=== PATIENT | male | born 1985 | race Caucasian/White ===

== ENCOUNTER → 2022-05-09 | Outpatient (CLI) | payer MEDICAID, SELFPAY ==
[2022-05-09 15:26] LABS: Absolute Lymphocyte Count 2.79 X10^3/uL (0.83-4.51); Absolute Neutrophil Count 4.6 X10^3/uL (2.0-7.7); Basophil# 0.05 X10^3/uL; Basophil% 0.6 % (0-1); Eosinophils% 1.2 % (0-5); Lymphocyte # 2.79 X10^3/ul (0.83-4.51); Lymphocyte % 34.6 % (19-41); Mean Corp Hgb Conc 35.9 g/dL (32-36); Mean Corpuscular Hgb 33.4 pg (27.0-32.0); Mean Corpuscular Volume 93.1 fL (80-94); Mean Platelet Vol. 9.3 fl (6.2-12.0); Monocyte# 0.49 X10^3/uL; Monocyte% 6.1 % (0-10); NRBC Flagged by Analyzer 0 % (0-5); Platelet Count 248 K/mm3 (150-450); RBC Distribution Width SD 37.2 fl (35.1-43.9); Red Blood Count 4.19 M/mm3 (4.6-6.2); White Blood Count 8.1 K/mm3 (4.4-11.0)
[2022-05-09 15:35] LABS: Anion Gap 5 (5-15); BUN 15 mg/dL (7-18); BUN/Creat Ratio 15.9 RATIO (10-20); Calcium,Total 9.1 mg/dL (8.5-10.1); Chloride 102 mmol/L (98-107); Creatinine, Serum 0.94 mg/dL (0.70-1.30); EST Glomerular Filtration Rate 97 mL/min (>60); Est Glom Filt Rate - Afr Amer 118 mL/min (>60); Glucose 103 mg/dL (74-106); Potassium 4.1 mmol/L (3.5-5.1); Sodium Level 136 mmol/L (136-145)
== END | disposition home or self-care (01) ==
LOC: BIMLAB 14:05
PROVIDERS: PCP Family Medicine; Visit Provider Family Medicine
DX: F71 Moderate intellectual disabilities (principal); F32.9 Major depressive disorder, single episode, unspecified
CPT/HCPCS: 36415; 80048; 85025

== ENCOUNTER → 2025-03-25 | Outpatient (CLI) | payer MEDICAID, SELFPAY ==
[2025-03-25 15:24] LABS: Hematocrit 39.0 % (40-54); Hemoglobin 13.0 g/dL (13.0-16.5); Immature Granulocytes Count 0.030 X10^3/uL (0.0-0.0); Mean Corp Hgb Conc 33.3 g/dL (32-36); Mean Corpuscular Volume 97.0 fL (80-94); Mean Platelet Vol. 9.8 fl (6.2-12.0); NRBC Flagged by Analyzer 0 % (0-5); Platelet Count 268 K/mm3 (150-450); RBC Distribution Width CV 11.4 % (11.6-14.6); RBC Distribution Width SD 40.1 fl (35.1-43.9); Red Blood Count 4.02 M/mm3 (4.6-6.2); White Blood Count 5.7 K/mm3 (4.4-11.0)
[2025-03-25 15:59] LABS: AST(SGOT) 19 U/L (<=37); Alanine Aminotransfer ALT/SGPT 14 U/L (<=46); Albumin, Serum 4.6 g/dL (3.5-5.0); Alkaline Phosphatase 48 U/L (40-129); Anion Gap 11 (5-15); BUN 13 mg/dL (4-19); BUN/Creat Ratio 15.6 RATIO (10-20); Calcium,Total 9.6 mg/dL (7.6-11.0); Carbon Dioxide 25.3 mmol/L (21.0-32.0); Chloride 102 mmol/L (98-108); Globulin 2.5 g/dL (2.2-4.2); Glucose 94 mg/dL (70-99); Potassium 4.9 mmol/L (3.3-5.1)
--- OUTSIDE RECORDS SUMMARY | 2025-03-25 19:21 | XMS RPT_ITS | CCD ---
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 Gopal Gustafson Primary Care Provider [phone] Dr. Gopal Gustafson Attending Provider Dr. Gopal Gustafson Referring Provider [phone] Gopal Gustafson Attending Unavailable Gopal Gustafson Referring Unavailable Gopal Gustafson Primary Care Unavailable Gopal Gustafson Referring Unavailable Gopal Gustafson Primary Care Unavailable Gopal Gustafson Attending Unavailable Dr. Gopal Gustafson DO Primary Care Physician Dr. Gopal Gustafson DO Attending Physician [phone] Dr. Gopal Gustafson DO Referring Provider Medications Current Medications Medication Drug Class(es) Dates Sig (Normalized) Sig (Original) citalopram 20 mg oral tablet (20 sources) Serotonin Reuptake Inhibitor Start: 02-20-2018 End: 03-25-2025 take 1 tablet by mouth once daily fluticasone propionate 0.05 mg/actuat metered dose nasal spray (8 sources) Corticosteroid Start: 02-13-2018 End: 12-25-2023 Start: 02-13-2018 End: 06-22-2020 Fluticasone Propionate Activ e 2 SPRAY INTRANASAL daily 15.8 June 22, 2020 8:34am Multivitamin tablet (1 source) Start: 04-12-2023 Completed/Discontinued Medications Medication Drug Class(es) Dates Sig (Normalized) Sig (Original) 24 hr buPROPion hydrochloride 150 mg extended release oral tablet (2 sources) Aminoketone Start: 02-13-2018 End: 02-20-2018 take 1 tablet by mouth once daily in the morning Bupropion Hcl 150 mg tablet extended release 24 hr Discontinued 150 mg PO EVERY MORNING February 13, 2018 12:00am February 20, 2018 2:35pm ketoconazole 10 mg/ml medicated shampoo (4 sources) Azole Antifungal Start: 11-21-2018 End: 05-09-2022 Ketoconazole (Nizoral A-D) 1 % shampoo Discontinued 1 NMA TOPICAL TWICE A WEEK 200 2 June 22, 2020 9:34am May 09, 2022 1:40pm Problems Active Problems Problem Classification Problem Date Documented Da te Episodic/Chronic Developmental disorders (5 sources) Moderate intellectual disability; Translations: [Moderate intellectual disabilities] Onset: 04-27-2023 Chronic Mood disorders (5 sources) Depressive disorder; Translations: [Depressive disorder] Onset: 04-27-2023 Chronic Other inflammatory condition of skin (2 sources) Pityriasis simplex; Translations: [Seborrhea capitis] 08-20-2019 Episodic Other nutritional; endocrine; and metabolic disorders (2 sources) Weight decreased; Translations: [Abnormal weight loss] 03-25-2025 Episodic Other skin disorders (2 sources) Acne varioliformis; Translations: [Acne varioliformis] 02-13-2018 Episodic Other upper respiratory disease (2 sources) Seasonal allergy; Translations: [Other seasonal allergic rhinitis] 02-13-2018 Chronic Past or Other Problems Problem Classification Problem Date Documented Da te Episodic/Chronic Immunizations and screening for infectious disease (1 source) Encounter for immunization; Translations: [Encounter for immunization] Onset: 04-27-2023 Episodic Results Test Name Value Interpretation Reference Range [facility] Internal Medicine Office Vis [facility] 12-25-2023 Internal Medicine Office Visit [facility] [address] [place] [address] OFFICE VISIT Date of Service: 12/25/23 MR#: [id number] Acct: [id number] Name: JOSEFINA LAW Vane Rep #: [id number] : 1985 Provider: Dr. Gopal almonte, DO Age/Sex: 38/M Location: [facility] [place] Status: Signed Intake Vital Signs 04/12/23 13:03 12/25/23 10:00 Height 6 ft 1 in 6 ft 1 in Weight: 212 lb 202 lb 4 oz BMI 27.9 26.6 BP 104/78 120/60 Blood Pressure Location Rt brachial Lt brachial Position Sitting Sitting Respiration 18 16 Pulse 71 70 Pulse Source Monitor Monitor Temp 98.5 F 97.6 F L Temp Source Temporal Temporal Pulse Oximetry (%) 96 98 Oxygen Delivery Method room air room air Intake Visit Reasons: ALLERGIES Chief Complaint: allergies Credit Reporter Required: No Accompanied by: Self Is patient in pain?: No Allergies No Known Allergies Allergy (Unverified 12/25/23 09:58) Medications ???Medication ???Instructions ???Recorded ???Confirmed ???Type multivitamin 1 tab PO DAILY 04/12/23 12/25/23 History citalopram 20 mg tablet (Celexa) 20 mg PO QDAY #90 tabs 12/25/23 12/25/23 Rx fluticasone propionate 50 2 spray intranasal QDAY #15.8 grams 12/25/23 12/25/23 Rx mcg/actuation nasal spray,suspension PFSH Medical History Seasonal allergies Acne varioliformis Depressive disorder Surgical History History of gastrointestinal surgery Family History Mother Hypertension Grandfather Hypertension Grandmother Hypertension Social History Smoking Status: Former smoker alcohol intake: current alcohol intake frequency: holidays/special occasions only substance use type: does not use what type of physical activity do you participate in: none HPI HPI Chief Complaint: allergies Details: JOSEFINA LAW, is a 38 M who presents to the office today for a refill on his medicine for depression and his nasal spray for his allergies. The biggest change in this young man's life is that his mother has been diagnosed with pancreatic cancer and only has several months to live. 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 I think he is at very high risk even if he could afford to live alone which he cannot. ROS Const Constitutional: No body ache, chills, excessive sweating, fatigue, fever(s), frequent falls, headache(s), snoring, weakness or change in appetite Eyes Eyes: No blurry vision, change in vision, eye pain or Light sensitivity ENT ENT: No abnormal hearing, ear or mastoid pain, tinnitus, nasal congestion, headache(s), neck pain or sore throat Resp Respiratory: No cough, shortness of breath, snoring or wheezing Cardio Cardiology: No chest pain at rest, chest pain with exertion, excessive sweating, dyspnea on exertion, lightheadedness, orthopnea or palpitations Gastro GI: No abdominal pain, change in bowel habits, constipation, cramping, diarrhea, nausea/dyspepsia or vomiting Genitourinary Male: No burning urination, painful urination, urinary incontinence or urinary frequency Musc Musculoskeletal: No abnormal gait, joint pain, back pain, limited range of motion, muscle weakness, neck pain or numbness Skin Skin: No dry skin, redness, lesions, itchy eyes, rash or wounds Neuro Neurology: No abnormal gait, abnormal hearing, weakness, frequent falls, headache(s), memory loss or numbness Psych Psychiatric: No anxiety, No change in appetite, No depression, No memory loss and No Thoughts of harming yourself/Others Endo Endocrine: No cold intolerance, excessive sweating, fatigue, flushing, heat intolerance, increased thirst/drinking or increased hunger Aller/Imm Allergy/Immunologic: No itchy eyes, seasonal allergy symptoms, hives or wheezing Kapil/Lymp Hematologic/Lymphatic: No easy bleeding or easy bruising Exam Const General: cooperative and healthy appearing Neck Neck: normal visual inspection Resp Effort Inspection: normal respiratory effort Auscultation: Bilateral: Clear to Auscultation Cardio Rate: regular rate Rhythm: regular rhythm Skin General: no rashes or lesions noted Neuro Cranial Nerves: CN's II-XI intact bilaterally Speech: speech normal Gait: normal gait Coordination: [id number] test normal Extrem General: normal to inspection Psych Appearance: grossly normal Affect: flat Speech and Movement: speech and movement normal Attitude: cooperative Thought Process: normal Thought Content: normal Judgment: fair Coding Level of Care Code Off vis,est,level 3 Diagnoses Moderate intellectual d (more content not included)... Normal [facility] Internal Medicine Office Vis [facility] 04-12-2023 Internal Medicine Office Visit [facility] [address] [place], [place] [address] OFFICE VISIT Date of Service: 04/12/23 MR#: [id number] Acct: [id number] Name: JOSEFINA LAW Rep #: [id number] : 1985 Provider: Dr. Gopal almonte DO Age/Sex: 37/M Location: [facility] [place] Status: Signed with Addenda ADDENDUM by Gill Rojo on 04/12/23 at 1419 Office Procedure Documentation entered by Gill Rojo 04/12/23 14:19: Immunizations Flucelvax Quad (PF) 60 mcg (15 mcg x 4)/0.5 mL IM syringe Performing Provider: Gopal Gustafson DO Performing Location: [facility] Administered by: Gill Rojo on 04/12/23 14:18 Dose Route Admin Location Dispensed Lot Number Expiration Date [facility] Man ufacturer 0.5 mL IM Left Deltoid 0.5 mL [id number] 12/15/23 06297-146-64 [employer] VIS Given Date VIS Provided VIS Publication Date 04/12/23 Single Vaccine 21 Eligibility Eligibility Date Funding Source Not Applicable Date cc: * Signed Intake Vital Signs 05/09/22 13:49 04/12/23 13:03 Height 6 ft 1 in 6 ft 1 in Weight: 218 lb 212 lb BMI 28.8 27.9 BP 120/78 104/78 Blood Pressure Location Lt brachial Rt brachial Position Sitting Sitting Respiration 15 18 Pulse 77 71 Pulse Source Monitor Monitor Temp 98.2 F 98.5 F Temp Source Temporal Temporal Pulse Oximetry (%) 98 96 Oxygen Delivery Method room air room air Intake Visit Reasons: 1 Y FU Chief Complaint: follow up Is patient in pain?: No Allergies No Known Allergies Allergy (Unverified 04/12/23 13:02) Medications fluticasone propionate 50 mcg/actuation nasal spray,suspension 2 spray intranasal QDAY #15.8 grams 05/29/22 [Rx Confirmed 04/12/23] citalopram 20 mg tablet (Celexa) 20 mg PO QDAY #90 tabs 04/12/23 [Rx Confirmed 04/12/23] multivitamin 1 tab PO DAILY 04/12/23 [History Confirmed 04/12/23] Nurse's Note: room 6 [facility] Medical History Acne varioliformis Depressive disorder Seasonal allergies Surgical History History of gastrointestinal surgery Family History Mother Hypertension Grandfather Hypertension Grandmother Hypertension Social History Smoking Status: Former smoker alcohol intake: current alcohol intake frequency: holidays/special occasions only substance use type: does not use what type of physical activity do you participate in: none HPI HPI Chief Complaint: follow up Details: JOSEFINA LAW, is a 37 M who presents to the office today for yearly exam. Chinedu is on Social Security disability because of developmental disorder. To my knowledge she has had no formal intelligence testing. He appears to be able to take care of his own basic needs but mainly takes care of a dog and really does not do anything else. He is aware of time person and place he can add and subtract he keeps up on world events, however the expectation of his mother is that he is unable to work and he has fulfilled that expectation. ROS Const Constitutional: No body ache, chills, excessive sweating, fatigue, fever(s), frequent falls, headache(s), snoring, weakness, sleep problems or change in appetite Eyes Eyes: No blurry vision, change in vision, eye pain or Light sensitivity ENT ENT: No abnormal hearing, ear or mastoid pain, tinnitus, nasal congestion, headache(s), neck pain or sore throat Resp Respiratory: No cough, shortness of breath, snoring or wheezing Cardio Cardiology: No chest pain at rest, chest pain with exertion, excessive sweating, shortness of breath, dyspnea on exertion, lightheadedness, orthopnea or palpitations Gastro GI: No abdominal pain, change in bowel habits, constipation, cramping, diarrhea, Vomiting blood/hematemesis or vomiting Genitourinary Male: No burning urination, painful urination, urinary incontinence or blood in urine Musc Musculoskeletal: No abnormal gait, joint pain, back pain, limited range of motion, neck pain, numbness or tingling Skin Skin: No dry skin, redness, lesions, itchy eyes, rash or wounds Breast Breast: No change in breast shape, breast lump, breast pain, breast skin changes, breast swelling or nipple discharge Neuro Neurology: No abnormal gait, abnormal hearing, weakness, frequent falls, headache(s), numbness or tingling Psych Psychiatric: No anxiety, No change in appetite, No depression and No Thoughts of harming yourself/Others Endo Endocrine: No excessive sweating, fatigue, flushing, heat intolerance, increased thirst/drinking or increased hunger Aller/Imm Allergy/Immunologic: No itchy eyes, seasonal allergy symptoms, hives or wheezin (more content not included)... Normal [facility] Absolute lymphocyte counton 05-09-2022 Lymphocytes Auto (Unsp spec) [#/Vol] 2.79 10*3/uL 0.83-4.51 [facility] Work Phone: Basophil percentageon 2021 Basophils/100 WBC (Bld) 0.6 % 0-1 [facility] Work Phone: Chloride [Moles/Vol] 102 mmol/L 98-107 [facility] Work Phone: Eosinophils/100 WBC (Bld) 1.2 % 0-5 [facility] Work Phone: Glucose [Mass/Vol] 103 mg/dL 74-106 [facility] Work Phone: Comment on above: Fasting Glucose resu lt from 100 to 125 mg/dL suggests IMPAIRED HOMEOSTASIS per A.D.A. criteria. Neutrophils (Bld) [#/Vol] 4.6 10*3/uL 2.0-7.7 [facility] Work Phone: Neutrophils/100 WBC (Bld) 57.0 % 47-70 [facility] Work Phone: Potassium [Moles/Vol] 4.1 mmol/L 3.5-5.1 [facility] Work Phone: Sodium [Moles/Vol] 136 mmol/L 136-145 [facility] Work Phone: WBC (Bld) [#/Vol] 8.1 10*3/uL 4.4-11.0 [facility] Work Phone: Blood erythrocytes count (nu mber/volume)on 05-09-2022 RBC (Bld) [#/Vol] 4.19 10*6/uL 4.6-6.2 [facility] Work Phone: Blood hemoglobin measurement (mass/volume)on 05-09-2022 Hemoglobin (Bld) [Mass/Vol] 14.0 g/dL 13.0-16.5 [facility] Work Phone: Blood lymphocytes/100 leukoc yteson 05-09-2022 Lymphocytes/100 WBC (Bld) 34.6 % 19-41 [facility] Work Phone: Blood monocytes/100 leukocyt eson 05-09-2022 Monocytes/100 WBC (Bld) 6.1 % 0-10 [facility] Work Phone: Blood platelet mean volumeon 05-09-2022 Platelet mean volume (Bld) [Entitic vol] 9.3 fL 6.2-12.0 [facility] Work Phone: Determination of erythrocyte mean corpuscular volume (MCV)on 05-09-2022 MCV (RBC) [Entitic vol] 93.1 fL 80-94 [facility] Work Phone: Hematocrit Auto (Bld) [Volum e fraction]on 05-09-2022 Hematocrit (Bld) [Volume fraction] 39.0 % 40-54 [facility] Work Phone: Laboratory - Chemistry and C hemistry - challengeon 05-09-2022 CO2 [Moles/Vol] 29.0 mmol/L 21.0-32.0 [facility] Work Phone: Urea nitrogen/Creatinine [Mass ratio] 15.9 mg/mg 10-20 [facility] Work Phone: Laboratory - Hematology and Cell countson 05-09-2022 Erythrocyte distribution width (RBC) [Entitic vol] 37.2 fL 35.1-43.9 [facility] Work Phone: Erythrocyte distribution width (RBC) [Ratio] 11.0 % 11.6-14.6 [facility] Work Phone: Immature granulocytes/100 WBC (Bld) 0.500 % 0.0-0.9 [facility] Work Phone: Comment on above: IG% - Immature Granu locytes (promyelocytes, myelocytes and metamyelocytes) > 1% indicates that a LEFT SHIFT is Present. MCH (RBC) [Entitic mass] 33.4 pg 27.0-32.0 [facility] Work Phone: Nucleated RBC/100 WBC (Bld) [Ratio] 0 % 0-5 [facility] Work Phone: MCHC Auto (RBC) [Mass/Vol]on 05-09-2022 MCHC (RBC) [Mass/Vol] 35.9 g/dL 32-36 [facility] Work Phone: No Panel Informationon 05-09 Estimated GFR (MDRD) Amer 118 mL/min >60 [facility] Work Phone: Comment on above: GFR Calc Estimated GFR (MDRD) Non-Af Amer 97 mL/min >60 [facility] Work Phone: Comment on above: Non- GFR Calc Platelets bldon 05-09-2022 Platelets (Bld) [#/Vol] 248 10*3/uL 150-450 [facility] Work Phone: Serum or plasma calcium alex urement (mass/volume)on 05-09-2022 Calcium [Mass/Vol] 9.1 mg/dL 8.5-10.1 [facility] Work Phone: Serum or plasma creatinine m easurement (mass/volume)on 05-09-2022 Creatinine [Mass/Vol] 0.94 mg/dL 0.70-1.30 [facility] Work Phone: Comment on above: The validity of the calculated GFR & GFRAA in patients over 70 years has not been determined. Clinical correlation is essential. Serum or plasma urea nitroge n measurement (mass/volume)on 05-09-2022 Urea nitrogen [Mass/Vol] 15 mg/dL 7-18 [facility] Work Phone: Thin prep Papanicolaou smear with manual screeningon 05-09-2022 Thin prep Papanicolaou smear with manual screening 5 5-15 [facility] Work Phone: Vital Signs Date Time Vital Sign Value Performing Clinician Faci lity 03-25-2025 11:24-0400 Body height 185.[address] Gopal Gustafson DO Work Phone: [facility] 03-25-2025 11:24-0400 Body mass index (BMI) [Ratio] 23.6 kg/m2 Dr. Gopal Gustafson DO Work Phone: [facility] 03-25-2025 11:24-0400 Body temperature 98.2 [degF] Dr. Gopal Gustafson DO Work Phone: [facility] 03-25-2025 11:24-0400 Body weight 81.[address] Gopal Gustafson DO Work Phone: [facility] 03-25-2025 11:24-0400 Diastolic blood pressure 60 mm[Hg] Dr. oGpal Gustafson DO Work Phone: [facility] 03-25-2025 11:24-0400 Heart rate 72 /min Dr. Gopal Gustafson DO Work Phone: [facility] 03-25-2025 11:24-0400 Respiratory rate 16 /min Dr. Gopal Gustafson DO Work Phone: [facility] 03-25-2025 11:24-0400 SaO2% (BldA) [Mass fraction] 99 % Dr. Gopal Gustafson DO Work Phone: [facility] 03-25-2025 11:24-0400 Systolic blood pressure 102 mm[Hg] Dr. Gopal Gustafson DO Work Phone: [facility] 05-09-2022 13:49-0400 Body height 185.[address] Gopal Gustafson Work Phone: [facility] Work Phone: 05-09-2022 13:49-0400 Body mass index (BMI) [Ratio] 28.8 kg/m2 Dr. Gopal Gustafson Work Phone: [facility] Work Phone: 05-09-2022 13:49-0400 Body temperature 98.2 [degF] Dr. Gopal Gustafson Work Phone: [facility] Work Phone: 05-09-2022 13:49-0400 Body weight 98.[address] Gopal Gustafson Work Phone: [facility] Work Phone: 05-09-2022 13:49-0400 Diastolic blood pressure 78 mm[Hg] Dr. Gopal Gustafson Work Phone: [facility] Work Phone: 05-09-2022 13:49-0400 Heart rate 77 /min Dr. Gopal Gustafson Work Phone: [facility] Work Phone: 05-09-2022 13:49-0400 Respiratory rate 15 /min Dr. Gopal Gustafson Work Phone: [facility] Work Phone: 05-09-2022 13:49-0400 SaO2% (BldA) [Mass fraction] 98 % Dr. Gopal Gustafson Work Phone: [facility] Work Phone: 05-09-2022 13:49-0400 Systolic blood pressure 120 mm[Hg] Dr. Gopal Gustafson Work Phone: [facility] Work Phone: Encounters Encounter Date Encounter Type Care Provider Facility Start: 03-25-2025 End: 03-25-[address] Gopal Gustafson DO Work Phone: -[facility] Start: 03-25-2025 End: 03-25-[address] Gopal Reid DO -[facility] Work Phone: Start: 12-25-2023 End: 12-25-2023 ambulatory Gopal Gustafson Facility:[facility] Start: 04-12-2023 End: 04-12-2023 ambulatory Gopal Gustafson Facility:[facility] Start: 05-09-2022 End: 05-09-[address] Gopal Gustafson Work Phone: [facility] Work Phone: Start: 05-09-2022 End: 05-09-[address] Gopal Gustafson Work Phone: [facility] Plan of Treatment Date Care Activity Detail Author Start: 03-25-2025 CBC W Auto Different ial panel - Blood [facility] Start: 03-25-2025 Comprehensive metabo lic 2000 panel - Serum or Plasma [facility] Alanine aminotransfe rase [Enzymatic activity/volume] in Serum or Plasma [facility] Albumin [Mass/volume ] in Serum or Plasma [facility] Alkaline phosphatase [Enzymatic activity/volume] in Serum or Plasma [facility] Anion gap in Serum or Plasma [facility] Bilirubin, total measurement [facility] BUN/Creatinine ratio [facility] Calcium [Mass/volume ] in Serum or Plasma [facility] Carbon dioxide, tota l [Moles/volume] in Central venous blood [facility] Creatinine [Mass/vol ume] in Serum or Plasma [facility] Erythrocyte mean cor puscular volume determination [facility] Glucose [Mass/volume ] in Serum or Plasma [facility] Hematocrit [Volume F raction] of Blood [facility] Hemoglobin [Mass/volume] in Blood [facility] Leukocytes [#/volume] in Blood [facility] Mean corpuscular hem oglobin concentration determination [facility] Mean corpuscular hem oglobin determination [facility] Measurement of renal function [facility] Neutrophil count [facility] Neutrophil percent d ifferential count [facility] Platelets [#/volume] in Blood [facility] Potassium measurement [facility] Red blood cell count [facility] Red cell distributio n width determination [facility] Serum chloride measurement [facility] Sodium measurement [facility] Total protein measurement [facility] Urea nitrogen [Mass/ volume] in Serum or Plasma [facility] Immunizations Immunization Date Immunization Notes Care Provider Fa cility 03-25-2025 influenza, injectabl e, madin tong canine kidney, preservative free Dr. Gopal Gustafson DO Work Phone: [facility] 04-12-2023 influenza, injectabl e, quadrivalent, preservative free Dr. Gopal Gustafson DO Work Phone: [facility] 12-03-2020 Covid (Pfizer) Dr. Gopal root Work Phone: [facility] Payers Date Payer Category Payer Self-pay [id number] 2023 Unknown [id number] Unknown [facility] [id number] Unknown [facility] [id number] Unknown [id number] Unknown [id number] Social History Date Type Detail Facility Start: 05-09-2022 Tobacco smoking stat [place] [facility] Work Phone: Start: 1985 Sex Assigned At Male W [facility] Start: 04-12-2023 [facility] Sex Male [facility] Progress note 03-25-2025 Note Date & Type Note Facility 03-25-2025 Progress note [facility] Progress note 03-25-2025 Note Date & Type Note Facility 03-25-2025 Progress note Note Date/Time March 25, 2025 12:09pm [facility] [address] [place] [address] [place] [address] OFFICE VISIT Date of Service: 03/25/25 MR#: [id number] Acct: [id number] Name: JOSEFINA LAW Rep #: [id number] [phone] 1985 Provider: Dr. Ernie Gustafson DO Age/Sex: 39/M Location: [facility] [place] Status: Signed Intake Vital Signs 12/25/23 10:00 03/25/25 11:24 Height 6 ft 1 in 6 ft 1 in Weight: 179 lb BMI 23.6 BP 102/60 Blood Pressure Location Rt brachial Position Sitting Respiration 16 Pulse 72 Pulse Source Monitor Temp 98.2 F Temp Source Temporal Pulse Oximetry (%) 99 Oxygen Delivery Method room air Intake Visit Reasons: 1 Y FU Chief Complaint: yearly Credit Reporter Required: No Accompanied by: Self Is patient in pain?: No Allergies No Known Allergies Allergy (Unverified 03/25/25 11:24) Medications ?Medication ?Instructions ?Recorded ?Confirmed ?Type multivitamin 1 tab PO DAILY 04/12/2303/09 History fluticasone propionate 50 2 spray intranasal QDAY #15. 8 grams 12/25/23 03/25/25 Rx mcg/actuation nasal spray,suspension citalopram 20 mg tablet (Celexa) 20 mg PO QDAY #90 tab s 03/25/25 03/25/25 Rx PFSH Medical History (Updated 03/25/25 @ 12:[address] Gopal Gustafsno DO) Seasonal allergies Acne varioliformis Depressive disorder Surgical History History of gastrointestinal surgery Family History Mother Hypertension Grandfather Hypertension Grandmother Hypertension Social History Smoking Status: Former smoker alcohol intake: current alcohol intake frequency: holidays/special occasions only substance use type: does not use what type of physical activity do you participate in: none HPI HPI Chief Complaint: yearly Details: JOSEFINA LAW, is a 39 M who presents to the office today for a yearly checkup. The last time I saw him he was with his mother who had terminal illness and diedof pancreatic cancer about 5 months later. I was concerned about his ability hillary on his own because he was so dependent on his mother. He now lives with his sister and does his own cooking and does his own shopping and since his mother has passed seems to have acquired a whole new set of life skills including getting a learner's permit for driving. He would like a statement that he is able to manage his finances independently. ROS Const Constitutional: No body ache, excessive sweating, fatigue, fever(s), frequent falls, headache(s), snoring, weakness, weight change, sleep problems or change in appetite Eyes Eyes: No blurry vision, change in vision, eye pain or Light sensitivity ENT ENT: No abnormal hearing, ear or mastoid pain, tinnitus, nasal congestion, headache(s), neck pain or sore throat Resp Respiratory: No cough, shortness of breath, snoring or wheezing Cardio Cardiology: No chest pain at rest, chest pain with exertion, excessive sweating,shortness of breath, dyspnea on exertion, lightheadedness, orthopnea or palpitations Gastro GI: No abdominal pain, change in bowel habits, constipation, cramping, diarrhea,nausea/dyspepsia or vomiting Genitourinary Male: No burning urination, painful urination, urinary incontinence, urinary frequency or blood in urine Musc Musculoskeletal: No abnormal gait, joint pain, back pain, limited range of motion, neck pain, numbness, stiffness, tingling or Arthritis Skin Skin: No dry skin, redness, lesions, itchy eyes, rash or wounds Neuro Neurology: No abnormal gait, abnormal hearing, abnormal speech, dizziness, weakness, frequent falls, headache(s), memory loss, numbness or tingling Psych Psychiatric: No anxiety, No change in appetite, No depression, No memory loss and No Thoughts of harming yourself/Others Endo Endocrine: No cold intolerance, excessive sweating, fatigue, flushing, heat intolerance, increased thirst/drinking, increased hunger or weight change Aller/Imm Allergy/Immunologic: No itchy eyes, seasonal allergy symptoms, hives or wheezing Kapil/Lymp Hematologic/Lymphatic: No easy bleeding, easy bruising or enlarged lymph nodes Exam Const General: cooperative and healthy appearing [facility] Head: normal to inspection Ears: hearing grossly normal bilaterally Mouth: oral mucosae normal Neck Neck: normal visual inspection Thyroid: thyroid normal Resp Effort & Inspection: normal respiratory effort Auscultation: Bilateral: Clear to Auscultation Cardio Rate: regular rate Rhythm: regular rhythm Skin General: no rashes or lesions noted Neuro Cranial Nerves: CN's II-XI intact bilaterally Speech: speech normal Gait: normal gait Coordination: [id number] test normal Extrem General: normal to inspection Psych Appearance: grossly normal Affect: normal affect Speech and Movement: speech and movement normal Attitude: cooperative Thought Process: normal Thought Content: normal Judgment: judgment good Immunizations Flucelvax [id number] (PF) 45 mcg (15 mcg x 3)/0.5 mL IM syringe Performing Provider: Gopal Gustafson DO Performing Location: [facility] Administered by: Ailyn Wellington on 03/25/25 11:46 Dose Route Admin Location Dispensed Lot Number Expiration Date Pack age NDC NDC Special Procedures Nurse 0.5 mL IM Left Arm (SQ) 0.5 mL [id number] 11/15/25 [id number] [employer]. VIS Given Date VIS Provided VIS Publication Date 03/25/25 Single Vaccine 24 Eligibility Eligibility Date Funding Source Not Applicable Administration Comments: Immunization given GERTRUDE patient tolerated well Coding Level of Care Code Off vis,est,level 4 Diagnoses Depressive disorder F32.9 Moderate intellectual disability F71 Weight loss R63.4 Assessment and Plan Assessment and Plan (1) Depressive disorder: Status: Chronic Plan: He certainly does not seem depressed. He is more verbal, alert and focused thanI have seen him in years. I feel for many years his mother did everything for him feeling he was not capable of doing things and now that she is gone he is doing his own cooking shopping cleaning starting to drive and is coming out of [place]. He would like his statement that he is able to manage himself and his financial affairs independently of other people and I feel that he is at this time. (2) Moderate intellectual disability: Status: Chronic Plan: He has quite he was on disability because he really does not know and I told himbasically his mother thought he was a very slow learner, but I think his intellectual capacity will not normal is certainly high enough that he can manage himself independently. (3) Weight loss: Status: Acute Plan: He has lost about 30 pounds. Since his mother he has stopped drinking alcohol and now mows the grass and walks the dog so he is physically a lot more active. Nonetheless I want to do some blood work to make sure that he has not developed any metabolic problems that would cause the weight loss. Orders: Orders CBC W/Diff, Automated Today F32.9 - Major depressive disorder, single episode, unspecified Comprehensive Metabolic Profil Today F32.9 - Major depressive disorder, single episode, unspecified Influenza Immunization Today Z23 - Encounter for immunization Medications: Refilled citalopram (Celexa) 20 mg PO QDAY 90 tabs 2RF Plan Details Follow Up: 6 Months 03/25/25 1209 <Electronically signed by Gopal lozano DO> Date _ Gopal Gustafson DO Cosigner Signature: Date (if applicable) CC: ~ [facility] Work Phone: Evaluation note Note Date & Type Note Facility Evaluation note Diagnosis Onset Date Depressive disorder chronic Moderate intellectual disability [facility] Work Phone: Evaluation note Note Date & Type Note Facility Evaluation note Diagnosis Onset Date Resolution Weight loss acute March 11:08am Depressive disorder chronic [facility] 2024 11:08am Moderate intellectual disability chronic March 25, 2025 11:08am [facility] Work Phone: Reason for referral (narrative) Note Date & Type Note Facility Reason for referral (narrative) No reason for referral information available [facility] Work Phone: Chief Complaint and Reason for Visit Chief Complaint FU Reason for Visit Depressive disorder Moderate intellectual disability Chief Complaint Admit Date 1 Y FU March 25, 2025 11:08am Reason for Visit Admit Date Weight loss March 25, 2025 11:08am Depressive disorder March 25, 2025 11:08am Moderate intellectual disability [facility] 20[facility] 11:08am Family History Relationship Condition Age at Onset Recorded Date/T karolina mother Hypertension Unknown grandfather Hypertension Unknown grandmother Hypertension Unknown Summary Purpose Advance Directives No Advanced Directives Records Found Additional Source Comments Goals (unrecognized section and content) Goals may be documented in a n alternate sectionGoals may be documented in an alternate section (unrecognized sect ion and content) No Status Records Found INFORMATION SOURCE (unrecogn ized section and content) DATE CREATED AUTHOR 12/26/2023 [facility] Care Teams (unrecognized sec tion and content) Team Status: Active Member Role/Relationship Status Dates Dr. Gopal Gustafson DO Primary care physician Active Team Status: Inactive Member Role/Relationship Status Dates Dr. Gopal Gustafson DO Primary care physician Active Start: March 25, 2025 End: March 25, 2025 Dr. Gopal Gustafson DO Attending physician Active Start: March 25, 2025 End: March 25, 2025 Dr. Gopal Gustafson DO Referring Provider Active Start: March 25, 2025 End: March 25, 2025 Team Status: Active Member Role/Relationship Status Dates Dr. Gopal Gustafson DO Primary care physician Active Start: March 25, 2025 Dr. Gopal Gustafson DO Attending physician Active Start: March 25, 2025 Dr. Gopal Gustafson DO Referring Provider Active Start: March 25, 2025 FOR RECORDS PERTAINING TO PATIENTS WHO ARE OR HAVE BEEN ENROLLED IN A CHEMICAL DEPENDENCY/SUBSTANCEABUSE PROGRAM, SOME INFORMATION MAY BE OMITTED. This clinical summary was aggregated from multiple sources. Caution should be exercised in using it in the provision of clinical care. This summary normalizes information from multiple sources, and as a consequence, information in this document may materially change the coding, format and clinical context of patient data. In addition, data may be omitted in some cases. CLINICAL DECISIONS SHOULD BE BASED ON THE PRIMARY CLINICAL RECORDS. [employer] provides no warranty or guarantee of the accuracy or completeness of information in this document.
== END | disposition home or self-care (01) ==
LOC: BIMLAB 11:45
PROVIDERS: PCP Family Medicine; Referring Provider Family Medicine; Visit Provider Family Medicine
DX: F32.9 Major depressive disorder, single episode, unspecified (principal)
CPT/HCPCS: 36415; 80053; 85025